=== PATIENT | female | born 1985 | race Caucasian/White ===

== ENCOUNTER 2018-11-15 08:40 | Day surgery (SDC) | payer OTHER ==
[2018-11-14 11:43] VITALS: Ht 165.1 cm; Wt 69.1 kg
[~2018-11-15] VITALS: Ht 165.1 cm; Wt 69.1 kg
[~2018-11-15 08:40] MED LIST: CEFAZOLIN 2 GM/50 ML (PMX) 50 ML (FOR WT < 120 KG) IVPB ONE; IBUP-1542 PO; LACTATED RINGER'S 1,000 ML IV SCH; PREN1TAB13 PO; SOD CHLORIDE 0.9% 1,000 ML IV SCH; TRAM50TA2 PO
[2018-11-15] MEDS ORDERED: LEVO50TA71 PO (09:09)
[2018-11-15 09:20] VITALS: BP 120/79; PULSE 76; RESP 16
[2018-11-15] MEDS ORDERED: PHEN37.53 PO (10:00)
== END 2018-11-15 10:41 | disposition home or self-care (01) ==
LOC: SDS 08:40
PROVIDERS: ATTEND Obstetrics & Gynecology
DX: Z30.2 Encounter for sterilization (principal); Z53.8 Procedure and treatment not carried out for other reasons
CPT/HCPCS: 85025; 86850; 86900; 86901

== ENCOUNTER 2019-04-29 16:23 | Emergency (ER) | payer OTHER ==
[~2019-04-29] VITALS: Ht 167.6 cm; Wt 74.8 kg
[~2019-04-29 16:23] MED LIST changes: -CEFAZOLIN 2 GM/50 ML (PMX) 50 ML (FOR WT < 120 KG) IVPB ONE; -IBUP-1542 PO; -LACTATED RINGER'S 1,000 ML IV SCH; +LEVO50TA71 PO; +PHEN37.53 PO; -PREN1TAB13 PO; -SOD CHLORIDE 0.9% 1,000 ML IV SCH; -TRAM50TA2 PO
[2019-04-29 16:32] VITALS: BP 150/81; PULSE 82; RESP 18; Ht 167.6 cm; Wt 74.8 kg
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
== END 2019-04-29 18:20 | disposition home or self-care (01) ==
LOC: FTE 16:23
DX: S00.93XA Contusion of unspecified part of head, initial encounter (principal); R51 Headache; V49.40XA Driver injured in collision with unspecified motor vehicles in traffic accident, initial encounter; Z87.891 Personal history of nicotine dependence
CPT/HCPCS: 70450; 71046; Z7502